=== PATIENT | male | born 1955 | race Two or more races ===

== ENCOUNTER 2021-02-05 22:04 | Inpatient (IN) | payer OTHER ==
[~2021-02-05] VITALS: Ht 170.2 cm; Wt 86.5 kg
[~2021-02-05 22:04] MED LIST: OMNIPAQUE 350 MG/ML, 100ML BOTTLE ONE
[2021-02-05] MEDS ORDERED: ACETAMINOPHEN 500 MG TABLET ONE (22:13)
--- NOTE | 2021-02-05 22:20 | NUR ---
Very diaphoretic, slightly confused. IVF wide open bag #1, BC x2 being drawn by lab. PCXR on way. Tylenol po given. Denies sob, cough. Hx DM takes metformin. ERP at bedside, EKG done. Sepsis criteria/ Resp ISO cart in front of room. CN informed, will continue to monitor.
[2021-02-05] MEDS ORDERED: PLEASE ENTER ALLERGIES MC SCH (22:30)
[2021-02-05] MEDS ORDERED: SODIUM CHLORIDE 0.9% 1,000ML IVBOLUS ONE ×2 (22:30→23:00)
[2021-02-05] MEDS ORDERED: ACETAMINOPHEN 500 MG TABLET PO ONE (22:30)
--- NOTE | 2021-02-05 22:36 | NUR ---
Swabs obtained and walked to lab. Pt reports he had 1st covid vaccine [employer]fizer 1 week ago, pt had screening colonoscopy yesterday took several bx. Prior to his appt they swabbed him for covid, he was neg. Pt also states at his work they swab them every few weeks. IVF infused, 1 st Liter. VSS. BC x2 drawn and sent. Will continue to monitor.
[2021-02-05] MEDS ORDERED: CEFTRIAXONE PMX 1GM/50ML 50 ML ONE (22:42)
[2021-02-05 22:45] LABS: BASOPHILS % (AUTO) 0 % (0-1); EOSINOPHILS % (AUTO) 1 % (1-7); LYMPHOCYTES % (AUTO) 5 % (22-44); MEAN CORPUSCULAR HEMOGLOBIN 29.3 pg (27.5-34.5); MEAN CORPUSCULAR HGB CONC 33.7 g/dL (33.2-36.2); MEAN PLATELET VOLUME 7.2 fL (7.4-10.4); MONOCYTES % (AUTO) 4 % (2-9); NEUTROPHILS % (AUTO) 90 % (42-75); PLATELET COUNT 208 x10^3/uL (130-400); RED BLOOD COUNT 4.44 x10^6/uL (4.38-5.82); RED CELL DISTRIBUTION WIDTH 14.8 % (9.4-14.8)
[2021-02-05 22:48] LABS: MD SCAN
[2021-02-05 22:57] LABS: ALANINE AMINOTRANSFERASE 24 U/L (12-78); ALBUMIN 3.4 g/dL (3.4-5.0); CALCIUM 7.9 mg/dL (8.5-10.1); CREATININE 1.18 mg/dL (0.7-1.3)
--- NOTE | 2021-02-05 22:58 | NUR ---
All BC x2 and urine were drawn and collected/sent, prior to abx being started. Remainder of IVF bolus infusing wide open. PCXR done. Waiting for CT/abd.
[2021-02-05] MEDS ORDERED: CEFTRIAXONE PMX 1GM/50ML 50 ML IV ONE (23:00)
[2021-02-05] MEDS ORDERED: CEFTRIAXONE PMX 1GM/50ML 50 ML IV SCH (23:00)
[2021-02-05 23:01] LABS: RAPID INFLUENZA A Negative (Negative); RAPID INFLUENZA B Negative (Negative)
[2021-02-05 23:13] LABS: MICROSCOPIC INDICATED
[2021-02-05 23:20] LABS: ANION GAP 8 mmol/L (5-15); CHLORIDE 107 mmol/L (98-107)
--- NOTE | 2021-02-05 23:38 | NUR ---
Feeling better, IVF complete, vss. HR improved NSR no ectopy. Temp wnl. Waiting for CT, at bedside.
[2021-02-05 23:45] LABS: ALKALINE PHOSPHATASE 68 U/L (45-117); TOTAL PROTEIN 7.2 g/dL (6.4-8.2); TROPONIN I < 0.015 ng/mL (0.000-0.045)
--- NOTE | 2021-02-05 23:55 | NUR ---
To CT, stable pt.
[2021-02-06] VITALS (7 sets, daily range): BP systolic 93–121; BP diastolic 45–65
--- NOTE | 2021-02-06 00:12 | NUR ---
Back from CT, pt looks and feels a lot better. VSS. Up walking to bathroom. Updated ERP.
[2021-02-06] MEDS ORDERED: CEFTRIAXONE PMX 1GM/50ML 50 ML IV ONE (01:00)
[2021-02-06] MEDS ORDERED: CEFTRIAXONE PMX 1GM/50ML 50 ML ONE (01:07)
--- NOTE | 2021-02-06 01:13 | NUR ---
task rn: per dr pickett pt to be given additional gram of rocephin. abx started at this time, hospitalist at bedside for admit
[2021-02-06] MEDS ORDERED: metformin (01:15)
[2021-02-06] MEDS ORDERED: levothyroxine (01:15)
[2021-02-06] MEDS ORDERED: atorvastatin (01:15)
[2021-02-06] MEDS ORDERED: ONDANSETRON 2MG/ML, 2ML IVPush PRN (01:30)
[2021-02-06] MEDS ORDERED: ONDANSETRON ODT 4 MG PO PRN (01:30)
[2021-02-06] MEDS ORDERED: hydrALAzine 20 MG/ML, 1ML IVPush PRN (01:30)
[2021-02-06] MEDS ORDERED: BISACODYL 10 MG SUPP PR PRN (01:30)
[2021-02-06] MEDS ORDERED: OXYcodone IR 5MG TABLET PO PRN (01:30)
[2021-02-06] MEDS ORDERED: POTASSIUM CHLORIDE 20 MEQ TAB.ER.PRT PO ONE (01:30)
[2021-02-06] MEDS ORDERED: PROMETHAZINE 25 MG/ML, 1ML IM PRN (01:30)
[2021-02-06] MEDS ORDERED: POLYETHYLENE GLYCOL 17 GM PACKET PO PRN (01:30)
[2021-02-06] MEDS ORDERED: PIPERACILLIN/TAZO/PMX 3.375GM 50 ML ONE (01:35)
[2021-02-06] MEDS: PIPERACILLIN/TAZO/PMX 3.375GM 50 ML IV SCH ×4 (01:41→20:02)
--- NOTE | 2021-02-06 01:46 | NUR ---
MED: Pt rcd 2gm total Rocephin IV, 2300ml NS bolus, Tylenol 1gm po, Zosy 3.375gm started upon tx to floor. Report to GISSEL Trejo on med/surg. provided with hospital tele number, room number and visiting hours. VS Stable upon tx, pt feels better but very tired. 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 Intake: 2500ml Output: 450ml urine
[2021-02-06 02:49] LABS: BASOPHILS % (AUTO) 0 % (0-1); EOSINOPHILS % (AUTO) 0 % (1-7); LYMPHOCYTES % (AUTO) 8 % (22-44); MEAN CORPUSCULAR HEMOGLOBIN 29.2 pg (27.5-34.5); MEAN CORPUSCULAR HGB CONC 33.4 g/dL (33.2-36.2); MEAN PLATELET VOLUME 7.2 fL (7.4-10.4); MONOCYTES % (AUTO) 8 % (2-9); NEUTROPHILS % (AUTO) 83 % (42-75); PLATELET COUNT 194 x10^3/uL (130-400); RED BLOOD COUNT 4.31 x10^6/uL (4.38-5.82); RED CELL DISTRIBUTION WIDTH 15.4 % (9.4-14.8)
[2021-02-06 02:50] LABS: ALANINE AMINOTRANSFERASE 20 U/L (12-78); ANION GAP 9 mmol/L (5-15); CALCIUM 7.6 mg/dL (8.5-10.1); CHLORIDE 107 mmol/L (98-107); CHOLESTEROL, TOTAL 85 mg/dL (140-239); CREATININE 1.04 mg/dL (0.7-1.3)
[2021-02-06] MEDS: SODIUM CHLORIDE 0.9% 1,000 ML IV SCH ×3 (02:58→14:36)
[2021-02-06 02:59] LABS: ALKALINE PHOSPHATASE 62 U/L (45-117); BILIRUBIN,TOTAL 0.7 mg/dL (0.2-1.0); CHOL/HDL RATIO 2.8; HDL CHOL % 35 % (26-37); HDL CHOLESTEROL (DIRECT) 30 mg/dL (40-60); LDL CHOLESTEROL,CALCULATED 38 mg/dL (54-169); LDL/HDL RATIO 1.3 (0.5-3.0); TOTAL PROTEIN 6.6 g/dL (6.4-8.2); TRIGLYCERIDES 84 mg/dL (50-200); VLDL CHOLESTEROL 17 mg/dL (0-25)
[2021-02-06 03:07] LABS: MD SCAN
[2021-02-06] MEDS: metFORMIN 850 MG TABLET PO SCH ×2 (08:02→17:49)
[2021-02-06] MEDS: SENNA/DOCUSATE TABLET PO SCH (08:03)
[2021-02-06] MEDS: ACETAMINOPHEN 325 MG TABLET PO PRN ×2 (08:19→21:08)
[2021-02-06] MEDS ORDERED: IBUPROFEN 600 MG TABLET PO ONE (22:30)
[2021-02-07] VITALS: BP 103/61
[2021-02-07] MEDS: PIPERACILLIN/TAZO/PMX 3.375GM 50 ML IV SCH ×4 (01:46→19:53)
[2021-02-07 05:33] LABS: ANION GAP 6 mmol/L (5-15); CALCIUM 7.9 mg/dL (8.5-10.1); CHLORIDE 108 mmol/L (98-107); CREATININE 1.03 mg/dL (0.7-1.3)
[2021-02-07 05:42] LABS: BASOPHILS % (AUTO) 0 % (0-1); EOSINOPHILS % (AUTO) 1 % (1-7); LYMPHOCYTES % (AUTO) 11 % (22-44); MEAN CORPUSCULAR HEMOGLOBIN 29.5 pg (27.5-34.5); MEAN CORPUSCULAR HGB CONC 33.1 g/dL (33.2-36.2); MEAN PLATELET VOLUME 7.6 fL (7.4-10.4); MONOCYTES % (AUTO) 12 % (2-9); NEUTROPHILS % (AUTO) 77 % (42-75); PLATELET COUNT 153 x10^3/uL (130-400); RED BLOOD COUNT 4.52 x10^6/uL (4.38-5.82); RED CELL DISTRIBUTION WIDTH 14.8 % (9.4-14.8)
[2021-02-07 05:43] LABS: MD NO
[2021-02-07] MEDS: metFORMIN 850 MG TABLET PO SCH ×2 (07:43→16:50)
[2021-02-07] MEDS: SENNA/DOCUSATE TABLET PO SCH (07:43)
[2021-02-07 08:28] VITALS: BP 97/60
[2021-02-07] MEDS: ENOXAPARIN 40 MG/0.4 ML SQ SCH (13:06)
[2021-02-07] MEDS: ACETAMINOPHEN 325 MG TABLET PO PRN (13:20)
[2021-02-07 13:53] VITALS: BP 118/66
[2021-02-07 20:18] VITALS: BP 124/67
[2021-02-08] MEDS: PIPERACILLIN/TAZO/PMX 3.375GM 50 ML IV SCH ×4 (01:39→20:07)
[2021-02-08 03:14] VITALS: BP 124/73
[2021-02-08 06:01] LABS: BASOPHILS % (AUTO) 0 % (0-1); EOSINOPHILS % (AUTO) 5 % (1-7); LYMPHOCYTES % (AUTO) 13 % (22-44); MEAN CORPUSCULAR HEMOGLOBIN 29.5 pg (27.5-34.5); MEAN CORPUSCULAR HGB CONC 34.1 g/dL (33.2-36.2); MEAN PLATELET VOLUME 7.9 fL (7.4-10.4); MONOCYTES % (AUTO) 14 % (2-9); NEUTROPHILS % (AUTO) 68 % (42-75); PLATELET COUNT 171 x10^3/uL (130-400); RED BLOOD COUNT 4.41 x10^6/uL (4.38-5.82); RED CELL DISTRIBUTION WIDTH 15.1 % (9.4-14.8)
[2021-02-08 06:04] LABS: MD NO
[2021-02-08 06:12] LABS: ANION GAP 6 mmol/L (5-15); CALCIUM 7.9 mg/dL (8.5-10.1); CHLORIDE 106 mmol/L (98-107)
[2021-02-08 06:38] VITALS: BP 116/58
[2021-02-08] MEDS: metFORMIN 850 MG TABLET PO SCH ×2 (08:01→16:55)
[2021-02-08] MEDS: SENNA/DOCUSATE TABLET PO SCH (08:02)
[2021-02-08] MEDS: ENOXAPARIN 40 MG/0.4 ML SQ SCH (13:05)
[2021-02-08 13:12] VITALS: BP 111/72
[2021-02-08] MEDS: PHENAZOPYRIDINE 100 MG TABLET PO SCH ×2 (15:05→21:21)
[2021-02-08 17:02] LABS: HCT (SEDRATE) 40.9 % (39.2-51.8)
[2021-02-08 20:20] VITALS: BP 124/75
[2021-02-08] MEDS: NYSTATIN TOPICAL POWDER 15GM TP SCH (21:21)
[2021-02-09 01:50] VITALS: BP 116/72
[2021-02-09] MEDS: PIPERACILLIN/TAZO/PMX 3.375GM 50 ML IV SCH ×4 (02:14→19:56)
[2021-02-09 05:55] LABS: BASOPHILS % (AUTO) 1 % (0-1); EOSINOPHILS % (AUTO) 9 % (1-7); LYMPHOCYTES % (AUTO) 20 % (22-44); MEAN CORPUSCULAR HEMOGLOBIN 29.6 pg (27.5-34.5); MEAN CORPUSCULAR HGB CONC 33.8 g/dL (33.2-36.2); MEAN PLATELET VOLUME 7.5 fL (7.4-10.4); MONOCYTES % (AUTO) 19 % (2-9); NEUTROPHILS % (AUTO) 52 % (42-75); PLATELET COUNT 203 x10^3/uL (130-400); RED BLOOD COUNT 4.45 x10^6/uL (4.38-5.82); RED CELL DISTRIBUTION WIDTH 14.8 % (9.4-14.8)
[2021-02-09 05:59] LABS: MD NO
[2021-02-09 06:00] LABS: ALBUMIN 2.7 g/dL (3.4-5.0); ANION GAP 4 mmol/L (5-15); CALCIUM 8.2 mg/dL (8.5-10.1); CHLORIDE 109 mmol/L (98-107)
[2021-02-09] MEDS: NYSTATIN TOPICAL POWDER 15GM TP SCH ×4 (06:02→21:37)
[2021-02-09 06:06] LABS: ALANINE AMINOTRANSFERASE 32 U/L (12-78); ALKALINE PHOSPHATASE 63 U/L (45-117); BILIRUBIN,TOTAL 0.4 mg/dL (0.2-1.0); CREATININE 1.01 mg/dL (0.7-1.3); TOTAL PROTEIN 6.7 g/dL (6.4-8.2)
[2021-02-09 07:21] VITALS: BP 134/83
[2021-02-09] MEDS: metFORMIN 850 MG TABLET PO SCH ×2 (08:07→16:49)
[2021-02-09] MEDS: PHENAZOPYRIDINE 100 MG TABLET PO SCH ×3 (09:50→21:37)
[2021-02-09] MEDS: SENNA/DOCUSATE TABLET PO SCH (10:59)
[2021-02-09] MEDS: ENOXAPARIN 40 MG/0.4 ML SQ SCH (12:10)
[2021-02-09 12:48] VITALS: BP 138/80
[2021-02-09] MEDS ORDERED: DIPHENHYDRAMINE 50 MG/ML, 1ML IVPush ONE (18:00)
[2021-02-09 19:45] VITALS: BP 128/86
[2021-02-10] MEDS: PIPERACILLIN/TAZO/PMX 3.375GM 50 ML IV SCH (01:57)
[2021-02-10 02:07] VITALS: BP 125/77
[2021-02-10 05:15] LABS: BASOPHILS % (AUTO) 1 % (0-1); EOSINOPHILS % (AUTO) 10 % (1-7); LYMPHOCYTES % (AUTO) 27 % (22-44); MEAN CORPUSCULAR HEMOGLOBIN 29.4 pg (27.5-34.5); MEAN CORPUSCULAR HGB CONC 33.9 g/dL (33.2-36.2); MEAN PLATELET VOLUME 7.1 fL (7.4-10.4); MONOCYTES % (AUTO) 17 % (2-9); NEUTROPHILS % (AUTO) 46 % (42-75); PLATELET COUNT 258 x10^3/uL (130-400); RED BLOOD COUNT 4.67 x10^6/uL (4.38-5.82); RED CELL DISTRIBUTION WIDTH 14.7 % (9.4-14.8)
[2021-02-10 05:19] LABS: MD NO
[2021-02-10 05:36] LABS: CHLORIDE 107 mmol/L (98-107)
[2021-02-10 05:42] LABS: ALANINE AMINOTRANSFERASE 58 U/L (12-78); ALBUMIN 2.9 g/dL (3.4-5.0); ALKALINE PHOSPHATASE 70 U/L (45-117); ANION GAP 5 mmol/L (5-15); BILIRUBIN,TOTAL 0.4 mg/dL (0.2-1.0); CALCIUM 8.3 mg/dL (8.5-10.1); CREATININE 1.01 mg/dL (0.7-1.3); TOTAL PROTEIN 7.5 g/dL (6.4-8.2)
[2021-02-10] MEDS: NYSTATIN TOPICAL POWDER 15GM TP SCH ×4 (06:01→20:04)
[2021-02-10 08:04] VITALS: BP 134/80
[2021-02-10] MEDS: SENNA/DOCUSATE TABLET PO SCH (08:16)
[2021-02-10] MEDS: PHENAZOPYRIDINE 100 MG TABLET PO SCH ×3 (08:16→20:03)
[2021-02-10] MEDS: metFORMIN 850 MG TABLET PO SCH ×2 (08:16→16:56)
[2021-02-10 12:31] VITALS: BP 147/82
[2021-02-10] MEDS: LEVOFLOXACIN/PMX 500MG/100ML 100 ML IV SCH (13:01)
[2021-02-10] MEDS: ENOXAPARIN 40 MG/0.4 ML SQ SCH (13:02)
[2021-02-10 20:15] VITALS: BP 138/85
[2021-02-10] MEDS ORDERED: DIPHENHYDRAMINE/ZINC CRM 2%, 30GM TP PRN (23:30)
[2021-02-11 01:17] VITALS: BP 109/63
[2021-02-11] MEDS: NYSTATIN TOPICAL POWDER 15GM TP SCH ×4 (05:45→20:30)
[2021-02-11 05:48] LABS: BASOPHILS % (AUTO) 1 % (0-1); EOSINOPHILS % (AUTO) 11 % (1-7); LYMPHOCYTES % (AUTO) 28 % (22-44); MEAN CORPUSCULAR HEMOGLOBIN 29.3 pg (27.5-34.5); MEAN CORPUSCULAR HGB CONC 34.1 g/dL (33.2-36.2); MEAN PLATELET VOLUME 7.1 fL (7.4-10.4); MONOCYTES % (AUTO) 14 % (2-9); NEUTROPHILS % (AUTO) 47 % (42-75); PLATELET COUNT 279 x10^3/uL (130-400); RED BLOOD COUNT 4.49 x10^6/uL (4.38-5.82); RED CELL DISTRIBUTION WIDTH 14.8 % (9.4-14.8)
[2021-02-11 05:56] LABS: ALANINE AMINOTRANSFERASE 105 U/L (12-78); ANION GAP 5 mmol/L (5-15); CALCIUM 8.9 mg/dL (8.5-10.1); CHLORIDE 107 mmol/L (98-107); CREATININE 0.93 mg/dL (0.7-1.3)
[2021-02-11 05:59] LABS: ALKALINE PHOSPHATASE 77 U/L (45-117); BILIRUBIN,TOTAL 0.3 mg/dL (0.2-1.0); MD NO; TOTAL PROTEIN 7.4 g/dL (6.4-8.2)
[2021-02-11 06:58] VITALS: BP 125/73
[2021-02-11] MEDS: metFORMIN 850 MG TABLET PO SCH ×2 (07:45→16:32)
[2021-02-11] MEDS: PHENAZOPYRIDINE 100 MG TABLET PO SCH ×3 (07:45→20:30)
[2021-02-11] MEDS: SENNA/DOCUSATE TABLET PO SCH (07:45)
[2021-02-11] MEDS: ENOXAPARIN 40 MG/0.4 ML SQ SCH (11:27)
[2021-02-11] MEDS: LEVOFLOXACIN/PMX 500MG/100ML 100 ML IV SCH (12:40)
[2021-02-11 13:26] VITALS: BP 115/77
[2021-02-11 20:16] VITALS: BP 162/77
[2021-02-12 00:16] VITALS: BP 127/72
[2021-02-12 05:25] LABS: BASOPHILS % (AUTO) 1 % (0-1); EOSINOPHILS % (AUTO) 10 % (1-7); LYMPHOCYTES % (AUTO) 31 % (22-44); MEAN CORPUSCULAR HEMOGLOBIN 29.2 pg (27.5-34.5); MEAN CORPUSCULAR HGB CONC 33.5 g/dL (33.2-36.2); MEAN PLATELET VOLUME 7.2 fL (7.4-10.4); MONOCYTES % (AUTO) 11 % (2-9); NEUTROPHILS % (AUTO) 47 % (42-75); PLATELET COUNT 311 x10^3/uL (130-400); RED BLOOD COUNT 4.58 x10^6/uL (4.38-5.82); RED CELL DISTRIBUTION WIDTH 14.9 % (9.4-14.8)
[2021-02-12] MEDS: NYSTATIN TOPICAL POWDER 15GM TP SCH ×2 (05:33→12:13)
[2021-02-12 05:41] LABS: MD NO
[2021-02-12 05:46] LABS: CALCIUM 9.1 mg/dL (8.5-10.1); CHLORIDE 103 mmol/L (98-107)
[2021-02-12 05:51] LABS: ALANINE AMINOTRANSFERASE 151 U/L (12-78); ALBUMIN 3.3 g/dL (3.4-5.0); ALKALINE PHOSPHATASE 78 U/L (45-117); ANION GAP 5 mmol/L (5-15); BILIRUBIN,TOTAL 0.4 mg/dL (0.2-1.0); CREATININE 1.01 mg/dL (0.7-1.3); TOTAL PROTEIN 7.8 g/dL (6.4-8.2)
[2021-02-12 06:22] VITALS: BP 128/72
[2021-02-12] MEDS: PHENAZOPYRIDINE 100 MG TABLET PO SCH (07:30)
[2021-02-12] MEDS: SENNA/DOCUSATE TABLET PO SCH ×2 (07:30→07:34)
[2021-02-12] MEDS: metFORMIN 850 MG TABLET PO SCH (07:30)
[2021-02-12] MEDS: LEVOFLOXACIN/PMX 500MG/100ML 100 ML IV SCH (12:13)
[2021-02-12] MEDS: ENOXAPARIN 40 MG/0.4 ML SQ SCH (12:30)
[2021-02-12 12:47] VITALS: BP 144/78
[2021-02-12] MEDS ORDERED: Sulfameth./Trimethoprim Ds PO (13:46)
[2021-02-12] MEDS ORDERED: SULFAMETH./TRIMETHOPRIM DS 800MG/160MG TABLET PO SCH (21:00)
== END 2021-02-12 16:19 | disposition home or self-care (01) | DRG 871 ==
LOC: ED 23:07 → EDIP 02-06 00:55 → 3N 02-06 01:45 → DCLOUNGE 02-12 16:01
PROVIDERS: ADMIT Internal Medicine; ATTEND Hospitalist
DX: A41.51 Sepsis due to Escherichia coli [E. coli] (principal); K83.1 Obstruction of bile duct; N41.0 Acute prostatitis; N39.0 Urinary tract infection, site not specified; J98.11 Atelectasis; N12 Tubulo-interstitial nephritis, not specified as acute or chronic; Z20.822 Contact with and (suspected) exposure to COVID-19; L27.0 Generalized skin eruption due to drugs and medicaments taken internally; B96.89 Other specified bacterial agents as the cause of diseases classified elsewhere; E11.9 Type 2 diabetes mellitus without complications; E66.9 Obesity, unspecified; E78.00 Pure hypercholesterolemia, unspecified; E87.6 Hypokalemia; I10 Essential (primary) hypertension; T36.0X5A Adverse effect of penicillins, initial encounter; R97.20 Elevated prostate specific antigen [PSA]; Z79.899 Other long term (current) drug therapy; Z79.891 Long term (current) use of opiate analgesic; Z79.01 Long term (current) use of anticoagulants; Z88.1 Allergy status to other antibiotic agents; Z88.8 Allergy status to other drugs, medicaments and biological substances; Z79.84 Long term (current) use of oral hypoglycemic drugs; Z68.29 Body mass index [BMI] 29.0-29.9, adult
CPT/HCPCS: 36415; 71045; 74177; 76700; 80048; 80053; 80061; 81001; 82962; 83036; 83605; 83735; 84100; 84145; 84153; 84443; 84484; 85025; 85651; 86140; 87040; 87077; 87086; 87186; 87400; 87491; 87591; 93005; 93306; 93356; 96361; 96374; 99285; G0378; J0696; J1650; J1956; J2543; Q9967; G0103; J1200; J7030; U0003

== ENCOUNTER → 2021-05-06 | Outpatient (CLI) | payer OTHER ==
[~2021-05-06] MED LIST changes: +ATOR20TA86 PO; +LEVO50TA5 PO; +LISI-170 PO; +METF500T17 PO; -OMNIPAQUE 350 MG/ML, 100ML BOTTLE ONE; +Sulfameth./Trimethoprim Ds PO; +atorvastatin; +levothyroxine; +metformin
[2021-05-06 15:39] LABS: BASOPHILS % (AUTO) 1 % (0-1); EOSINOPHILS % (AUTO) 5 % (1-7); LYMPHOCYTES % (AUTO) 33 % (22-44); MEAN CORPUSCULAR HEMOGLOBIN 30.5 pg (27.5-34.5); MEAN CORPUSCULAR HGB CONC 33.8 g/dL (33.2-36.2); MEAN PLATELET VOLUME 7.1 fL (7.4-10.4); MONOCYTES % (AUTO) 10 % (2-9); NEUTROPHILS % (AUTO) 51 % (42-75); PLATELET COUNT 245 x10^3/uL (130-400); RED BLOOD COUNT 4.74 x10^6/uL (4.38-5.82); RED CELL DISTRIBUTION WIDTH 15.3 % (9.4-14.8)
[2021-05-06 15:45] LABS: ALBUMIN 3.6 g/dL (3.4-5.0); ANION GAP 8 mmol/L (5-15); CALCIUM 8.1 mg/dL (8.5-10.1); CHLORIDE 107 mmol/L (98-107)
[2021-05-06 15:49] LABS: ALANINE AMINOTRANSFERASE 35 U/L (12-78); ALKALINE PHOSPHATASE 88 U/L (45-117); BILIRUBIN,TOTAL 0.5 mg/dL (0.2-1.0); CREATININE 0.97 mg/dL (0.7-1.3); TOTAL PROTEIN 7.7 g/dL (6.4-8.2)
== END | disposition home or self-care (01) ==
LOC: STAR 14:29
PROVIDERS: ATTEND Urology
DX: Z01.818 Encounter for other preprocedural examination (principal); C61 Malignant neoplasm of prostate; Z20.822 Contact with and (suspected) exposure to COVID-19
CPT/HCPCS: 36415; 80053; 85025; 93005; U0003; U0005

== ENCOUNTER 2021-05-14 05:28 | Observation (INO) | payer OTHER ==
[~2021-05-14] VITALS: Ht 170.2 cm; Wt 91.0 kg
[2021-05-14 06:21] VITALS: BP 157/91
[2021-05-14] MEDS ORDERED: CHLORHEXIDINE 15 ML UDC PO ONE (06:30)
[2021-05-14] MEDS ORDERED: LACTATED RINGERS 1,000 ML IV SCH (06:30)
[2021-05-14] MEDS ORDERED: BUPIVACAINE 0.25% ONE (06:48)
[2021-05-14] MEDS ORDERED: EPINEPHRINE 1 MG/ML, 1ML ONE (06:49)
[2021-05-14] MEDS ORDERED: OPIUM/BELLADONNA SUPP.RECT 16.2-60 MG ONE (06:49)
[2021-05-14] MEDS ORDERED: FENTANYL PF 250 MCG/5ML ONE (07:21)
[2021-05-14] MEDS ORDERED: MIDAZOLAM 1 MG/ML, 2ML ONE (07:21)
[2021-05-14] MEDS ORDERED: LIDOCAINE-MPF 2% ,5ML ONE (10:41)
[2021-05-14] MEDS ORDERED: DEXAMETHASONE 4 MG/ML, 1ML ONE (10:41)
[2021-05-14] MEDS ORDERED: ROCURONIUM 10MG/ML,5ML ONE (10:41)
[2021-05-14] MEDS ORDERED: NEOSTIGMINE 1 MG/ML, 10ML ONE (10:41)
[2021-05-14] MEDS ORDERED: GLYCOPYRROLATE 0.2MG/1ML, 5ML ONE (10:41)
[2021-05-14] MEDS ORDERED: PROPOFOL 10 MG/ML, 20ML ONE (10:41)
[2021-05-14] MEDS ORDERED: CEFAZOLIN 1,000 MG ONE (10:41)
[2021-05-14] MEDS ORDERED: ONDANSETRON 2MG/ML, 2ML ONE (10:41)
[2021-05-14] MEDS ORDERED: HYDROmorphone 1 MG/ML, 1ML INJ ONE (10:55)
[2021-05-14] MEDS ORDERED: ACETAMINOPHEN 325 MG TABLET PO PRN (11:00)
[2021-05-14] MEDS ORDERED: METHOCARBAMOL 1,000 MG in DEXTROSE 5% 100 ML IV PRN (11:00)
[2021-05-14] MEDS ORDERED: PROMETHAZINE 25 MG/ML, 1ML IVPush PRN (11:00)
[2021-05-14] MEDS ORDERED: MEPERIDINE/PF 25MG/0.5ML IVPush PRN (11:00)
[2021-05-14] MEDS ORDERED: LABETALOL 5MG/ML, 20ML IV PRN (11:00)
[2021-05-14] MEDS ORDERED: FENTANYL PF 100 MCG/2ML IV PRN (11:00)
[2021-05-14] MEDS ORDERED: OXYcodone 5 MG/5 ML ORAL.SOL UDC PO PRN (11:00)
[2021-05-14] MEDS ORDERED: ALBUTEROL SULFATE 2.5 MG/3 ML NPPB PRN (11:00)
[2021-05-14] MEDS ORDERED: MIDAZOLAM 1 MG/ML, 2ML IV PRN (11:00)
[2021-05-14] MEDS ORDERED: TEMAZEPAM 15 MG CAPSULE PO PRN (13:30)
[2021-05-14] MEDS ORDERED: MORPHINE SULFATE 4 MG/ML, 1ML IV PRN (13:30)
[2021-05-14] MEDS ORDERED: ONDANSETRON 2MG/ML, 2ML IV PRN (13:30)
[2021-05-14] MEDS ORDERED: OXYcodone IR 5MG TABLET PO PRN (13:30)
[2021-05-14] MEDS ORDERED: OPIUM/BELLADONNA SUPP.RECT 16.2-60 MG PR PRN (13:30)
[2021-05-14 14:00] VITALS: BP 148/82
[2021-05-14] MEDS: D5%-0.45NACL+KCL 20MEQ 1,000 ML IV SCH ×2 (15:13→23:35)
[2021-05-14] MEDS: ACETAMINOPHEN 500 MG TABLET PO SCH ×2 (16:58→23:02)
[2021-05-14 18:22] VITALS: BP 145/80
[2021-05-15 00:19] VITALS: BP 147/83
[2021-05-15 04:06] VITALS: BP 123/74
[2021-05-15] MEDS: ACETAMINOPHEN 500 MG TABLET PO SCH ×2 (04:51→11:36)
[2021-05-15] MEDS ORDERED: LEVOTHYROXINE 50 MCG TABLET PO SCH (06:00)
[2021-05-15 06:01] LABS: ANION GAP 5 mmol/L (5-15); CALCIUM 7.7 mg/dL (8.5-10.1); CHLORIDE 105 mmol/L (98-107)
[2021-05-15 06:03] LABS: CREATININE 0.85 mg/dL (0.7-1.3)
[2021-05-15] MEDS: D5%-0.45NACL+KCL 20MEQ 1,000 ML IV SCH (07:41)
[2021-05-15] MEDS ORDERED: metFORMIN XR 500 MG TAB.ER.24H PO SCH (08:00)
[2021-05-15] MEDS ORDERED: ENOXAPARIN 40 MG/0.4 ML SQ SCH (08:00)
[2021-05-15 08:10] VITALS: BP 130/76
[2021-05-15] MEDS ORDERED: LISINOPRIL 20 MG TABLET PO SCH (09:00)
[2021-05-15] MEDS ORDERED: OXYC5TAB2 PO (12:39)
[2021-05-15 14:30] VITALS: BP 130/56
== END 2021-05-15 16:15 | disposition home or self-care (01) ==
LOC: OUT 05:28 → 4NE 12:55 → INTOOBSV 12:55
PROVIDERS: ADMIT Urology; ATTEND Urology
DX: C61 Malignant neoplasm of prostate (principal); A41.9 Sepsis, unspecified organism; E78.5 Hyperlipidemia, unspecified; I10 Essential (primary) hypertension; E03.9 Hypothyroidism, unspecified; E11.9 Type 2 diabetes mellitus without complications; Z88.0 Allergy status to penicillin; Z79.899 Other long term (current) drug therapy; Z79.84 Long term (current) use of oral hypoglycemic drugs; Z87.891 Personal history of nicotine dependence
CPT/HCPCS: 36415; 55866; 80048; 82962; 85014; 85018; 86850; 86900; 88309; 96361; 96372; 96374; C1729; C1760; G0378; J0171; J0690; J1100; J1170; J1650; J2250; J2405; J2704; J2710; J3010; J3480; J3490; J7120; S2900

== ENCOUNTER 2021-05-22 07:33 | Outpatient (CLI) | payer OTHER ==
[~2021-05-22 07:33] MED LIST changes: +OXYC5TAB2 PO
== END 2021-05-22 23:59 | disposition home or self-care (01) ==
LOC: RAD 07:33
PROVIDERS: ATTEND Urology
DX: C61 Malignant neoplasm of prostate (principal)
CPT/HCPCS: 51600; 74430; Q9958